=== PATIENT | female | born 1960 | race Caucasian/White ===

== ENCOUNTER 2017-03-08 08:51 | Emergency (ER) | payer OTHER ==
[~2017-03-08] VITALS: Ht 170.2 cm; Wt 161.1 kg
[~2017-03-08 08:51] MED LIST: ACYCLOVIR800 MG PO; HYDROCODON-ACE1 EAC7 PO
[2017-03-08] MEDS ORDERED: PERCOCET 5/31 TABLET PO (14:14)
[2017-03-08 14:38] VITALS: BP 136/77
== END 2017-03-08 14:40 | disposition home or self-care (01) ==
LOC: EME 08:51
PROC: 0SSBXZZ Reposition Left Hip Joint, External Approach (ICD-10-PCS; principal; 2017-03-08)
DX: T84.021A Dislocation of internal left hip prosthesis, initial encounter (principal); Z96.643 Presence of artificial hip joint, bilateral; F17.200 Nicotine dependence, unspecified, uncomplicated; Z88.8 Allergy status to other drugs, medicaments and biological substances
CPT/HCPCS: 73501; 73502; 99281; 99284; J2270; J2405; J3010